=== PATIENT | female | born 1970 | race Caucasian/White ===

== ENCOUNTER 2016-07-22 20:21 | Emergency (ER) | payer OTHER ==
[~2016-07-22] VITALS: Ht 165.1 cm; Wt 71.7 kg
[2016-07-22 20:25] VITALS: TEMP 36.6; Ht 165.1 cm; Wt 71.7 kg
[2016-07-22 20:40] VITALS: O2SAT 99
[2016-07-22 21:12] LABS: HEMATOCRIT 33.6 % (37-47); MEAN CELL VOLUME 82.2 fL (80-100); MEAN CORPUSCULAR HEMOGLOBIN 28.6 pg (25-34); MEAN CORPUSCULAR HGB CONC 34.8 g/dl (32-36); MEAN PLATELET VOLUME 9.2 fL (7.4-10.4); PLATELET COUNT 257 K/uL (130-400); RED BLOOD COUNT 4.09 M/uL (4.2-5.4); WHITE BLOOD COUNT 4.17 K/uL (4.8-10.8)
--- NOTE | 2016-07-22 21:17 | DIAGNOSTIC IMAGING REPORT ---
CHEST ONE VIEW PORTABLE CLINICAL HISTORY: chest pain dyspnea COMPARISON STUDY: No previous studies for comparison. FINDINGS: The bones soft tissues and hemidiaphragms are normal. The cardiomediastinal silhouette is normal. The lungs are clear. The pulmonary vasculature is normal. IMPRESSION: Negative chest. Electronically signed by: Davey Cat M.D. 07/22/2016 9:15 PM
[2016-07-22 21:19] LABS: BUN/CREATININE RATIO 31.3 (10-20); CALCIUM 8.5 mg/dl (8.5-10.1); CREATININE 0.75 mg/dl (0.60-1.20); POTASSIUM 3.6 mmol/L (3.5-5.1)
[2016-07-22] MEDS ORDERED: KETOROLAC TROMETHAMINE 30 MG/ML VIAL IV STA (21:20)
[2016-07-22 21:24] LABS: ALB/GLOB RATIO 1.3 (0.9-2); CKMB/CK RATIO 0.9 (0-3.0)
[2016-07-22 21:26] LABS: PROTHROMBIN TIME (PATIENT) 10.3 SECONDS (9.0-12.0)
--- NOTE | 2016-07-22 21:38 | EMERGENCY ROOM VISIT NOTE ---
History Report prepared by Kana: [place] Under the Supervision of: Dr. Yeison Lopez M.D. First contact with patient: 21:15 Chief Complaint: CHEST PAIN Stated Complaint: CHEST PAINS, SOB History of Present Illness The patient is a 45 year old female who presents to the Emergency Room with complaints of severe left sided chest pain radiating towards her left shoulder starting about 2 hours ago. She was having dinner with her family when she had a sudden onset of her pain. She describes it to be a pressure-like pain which intermittently becomes sharp. She has worsening pain with breathing and turning her body to the left. The patient denies recent travels, dizziness, lightheadedness, headaches, nausea, vomiting, pain/swelling in lower extremities , or any other complaints. She denies any chance of . The patient does not have any medical problems. She has had no rash or nausea or hives. no difficulty speaking or swallowing Source of History: patient, spouse/significant other Onset: about 2 hours ago Position: chest (left) Symptom Intensity: severe Quality: pressure, sharp Modifying Factors (Worsening): breathing, other (turning her body to the left) Associated Symptoms: No headache, No nausea, No vomiting Review of Systems See HPI for pertinent positives & negatives. A total of 10 systems reviewed and were otherwise negative. Past Medical & Surgical Medical Problems: (1) No Known Active Medical Problems Old medical records were reviewed. Nurse's notes were reviewed and I agree with. Family History Patient reports no known family medical history. Social History Smoking Status: Never Smoker Drug Use: none Marital Status: Occupation Status: unemployed Current/Historical Medications Scheduled Acetaminophen (Tylenol), 1,000 MG PO PRN UD Allergies Coded Allergies: Povidone Iodine (Verified Allergy, Severe, RASH, 07/22/16) Physical Exam Vital Signs Date Time Temp Pulse Resp B/P Pulse Ox O2 Delivery O2 Flow Rate FiO2 07/23/16 00:03 69 19 95 07/22/16 23:58 95/64 07/22/16 23:33 73 18 96 07/22/16 23:28 103/66 07/22/16 23:03 75 29 97 07/22/16 22:58 101/64 07/22/16 22:51 77 16 96 07/22/16 22:28 99/68 07/22/16 22:21 71 26 98 07/22/16 21:58 106/66 07/22/16 21:51 75 23 98 07/22/16 21:28 105/69 07/22/16 21:21 75 21 100 07/22/16 21:05 Room Air 07/22/16 20:58 105/69 07/22/16 20:51 81 25 96 07/22/16 20:49 74 07/22/16 20:40 99 Room Air 07/22/16 20:39 107/72 07/22/16 20:25 36.6 80 18 134/87 98 Room Air Physical Exam General: Mildly uncomfortable appearing, young female, in no acute distress. HEENT: Normal cephalic atraumatic. Pupils are equal round and reactive to light. Sclerae anicteric. Extraocular movements are intact. Oropharynx is pink with moist mucous membranes. No swelling of the mouth lips or tongue. Neck: Supple with a midline trachea. No meningeal signs or stiffness, no JVD or bruits. No Stridor. Chest: Clear to auscultation bilaterally. No wheezes or rhonchi. No increased work of breathing. Reproducible tenderness to palpation. Heart: regular rate and rhythm. Abdomen: Soft nontender, nondistended without rebound guarding or rigidity. Extremities: No cyanosis clubbing or edema. No calf tenderness or assymetry Spine/Back. Non tender to palpation. No CVA tenderness Skin: Good turgor without rashes. Neurologic exam: Cranial nerves two through 12 are intact. Motor and sensation are intact and symmetrical throughout. Medical Decision & Procedures ER Provider Diagnostic Interpretation: X-ray results as stated below per interpretation by me and the radiologist: CHEST ONE VIEW PORTABLE CLINICAL HISTORY: chest pain dyspnea COMPARISON STUDY: No previous studies for comparison. FINDINGS: The bones soft tissues and hemidiaphragms are normal. The cardiomediastinal silhouette is normal. The lungs are clear. The pulmonary vasculature is normal. IMPRESSION: Negative chest. Electronically signed by: Davey Cat M.D. 07/22/2016 9:15 PM Laboratory Results 07/22/16 20:35 07/22/16 20:35 Test 07/22/16 20:35 Red Blood Count 4.09 M/uL (4.2-5.4) Mean Corpuscular Volume 82.2 fL (80-100) Mean Corpuscular Hemoglobin 28.6 pg (25-34) Mean Corpuscular Hemoglobin Concent 34.8 g/dl (32-36) RDW Standard Deviation 36.8 fL (36.4-46.3) RDW Coefficient of Variation 12.3 % (11.5-14.5) Mean Platelet Volume 9.2 fL (7.4-10.4) Prothrombin Time 10.3 SECONDS (9.0-12.0) Prothromb Time International Ratio 1.0 (0.9-1.1) Activated Partial Thromboplast Time 25.3 SECONDS (21.0-31.0) Partial Thromboplastin Ratio 1.0 D-Dimer 240 ug/L FEU (0-500) Anion Gap 11.0 mmol/L (3-11) Est Creatinine Clear Calc Drug Dose 96.0 ml/min Estimated GFR () 113.1 Estimated GFR (Non- 97.6 BUN/Creatinine Ratio 31.3 (10-20) Calcium Level 8.5 mg/dl (8.5-10.1) Total Bilirubin 0.2 mg/dl (0.2-1) Aspartate Amino Transf (AST/SGOT) 39 U/L (15-37) Alanine Aminotransferase (ALT/SGPT) 63 U/L (12-78) Alkaline Phosphatase 68 U/L (45-117) Total Creatine Kinase 80 U/L (26-192) Creatine Kinase MB 0.7 ng/ml (0.5-3.6) Creatine Kinase MB Ratio 0.9 (0-3.0) Troponin I < 0.015 ng/ml (0-0.045) Total Protein 7.0 gm/dl (6.4-8.2) Albumin 4.0 gm/dl (3.4-5.0) Globulin 3.0 gm/dl (2.5-4.0) Albumin/Globulin Ratio 1.3 (0.9-2) Laboratory studies as stated above per my review. Medications Administered Medications (Trade) Dose Ordered Sig/Sofi Route Start Time Stop Time Status Last Admin Dose Admin Ketorolac Tromethamine (Toradol Inj) 30 mg NOW STAT IV 07/22/16 21:20 07/22/16 21:21 DC 07/22/16 22:00 30 MG Ondansetron HCl (Zofran Inj) 4 mg NOW STAT IV 1/4/17 23:01 07/22/16 23:02 DC 07/22/16 23:05 4 MG Morphine Sulfate (MoRPHine SULFATE INJ) 4 mg NOW STAT IV 07/22/16 23:01 07/22/16 23:02 DC 07/22/16 23:05 4 MG Oxycodone HCl (Roxicodone Immediate Rel 5MG Home Pack) 1 homepack UD ONCE PO 07/23/16 00:15 07/23/16 00:17 DC 07/23/16 00:15 1 HOMEPACK ECG Indication: chest pain Rate (beats per minute): 70 Rhythm: normal sinus Findings: no acute ischemic change, no ectopy Comparison ECG Date: no prior available ED Course 2114: Past medical records reviewed. The patient was evaluated in room C10, and a complete history and physical examination were performed. 2119: Toradol 30 mg IV 2300: I reevaluated the patient who continues to complain of his pain and is requesting more pain medication. 2300: Morphine Sulfate 4 mg IV, Zofran Inj 4 mg IV 0000: Upon reevaluation, the patient is feeling better. I discussed the results and treatment plan with her. She verbalized agreement of the treatment plan. The patient was discharged home. 0015: Oxycodone HCl 1 homepack PO Medical Decision Differential diagnosis includes but is not limited to costochondritis, acute coronary syndrome, arrhythmia, pulmonary embolism, electrolyte or metabolic abnormality. This patient comes in as described above. She was placed in room C10. She is having pain along the left sternal border is extremely reproducible upon palpation breathing or movement. She's had no trauma. She has a history of having allergies but has no evidence of having acute anaphylaxis at present. She has no rash or shortness of breath, facial swelling or GI symptoms. IV access established and she was given Toradol 30 mg IV. EKG and multiple blood testing was obtained. Her EKG does not suggest acute coronary syndrome or arrhythmia. Her troponin is not elevated. Her chest x-ray was clear and has no pneumonia or pneumothorax. Her d-dimer is within normal limits and in a low pretest probably setting makes PE highly unlikely. She is not . She did require morphine 4 mg IV and Zofran 4 mg IV is feeling much better up to going home. I think this most likely is costochondritis. I will discharge her home. She should use ibuprofen for pain. For breakthrough pain, she can use OxyIR 5 mg, one or 2 pills every 4-6 hours as needed. She was warned that this could make her drowsy and do not take before drinking, driving, working. She should follow-up with her regular doctor in 1-2 days for recheck. The patient and her were happy with plan and she was discharged to home. Impression Primary Impression: Left sided chest pain Additional Impression: Costochondritis Scribe Attestation The scribe's documentation has been prepared under my direction and personally reviewed by me in its entirety. I confirm that the note above accurately reflects all work, treatment, procedures, and medical decision making performed by me. Departure Information Dispostion Home / Self-Care Referrals Nadeem Marmolejo M.D. (PCP) Forms HOME CARE DOCUMENTATION FORM, IMPORTANT VISIT INFORMATION Patient Instructions A Signature Page, My [facility] Additional Instructions Rest. Drink plenty of fluids. Use ibuprofen or acetaminophen if needed for pain. Do not exceed the [id number] recommended dosages for acetaminophen For more severe pain, use OxyIR 5 mg, one or 2 pills every 4-6 hours as needed OxyIR may make you drowsy and do not take before drinking, driving, working Return if: Worsening of symptoms, shortness of breath, fever or chills, any new problems or concerns.
[2016-07-22] MEDS ORDERED: ACET-1256 PO (22:37)
[2016-07-22] MEDS ORDERED: ONDANSETRON INJ 2 MG/ML 2 ML VIAL IV STA (23:01)
[2016-07-22] MEDS ORDERED: MoRPHine SULFATE 4 MG/ML 1 ML CARP\\VIAL IV STA (23:01)
[2016-07-22 23:58] VITALS: BP 95/64
[2016-07-23 00:03] VITALS: PULSE 69; O2SAT 95
[2016-07-23] MEDS ORDERED: OXYCODONE IR HOME PACK PO ONE (00:15)
[2016-12-17] MEDS ORDERED: MULT-506 PO (13:32)
[2016-12-17] MEDS ORDERED: CETI10TA84 PO (13:32)
== END 2016-07-23 00:26 | disposition home or self-care (01) ==
LOC: C.EDB 20:22 → C.EDC 07-23 00:26
DX: R07.9 Chest pain, unspecified (principal); M94.0 Chondrocostal junction syndrome [Tietze]; Z88.8 Allergy status to other drugs, medicaments and biological substances

== ENCOUNTER 2016-08-15 11:47 | Emergency (ER) | payer OTHER ==
[~2016-08-15] VITALS: Ht 162.6 cm; Wt 71.7 kg
[~2016-08-15 11:47] MED LIST: ACET-1256 PO
[2016-08-15 11:51] VITALS: TEMP 36.8; Ht 162.6 cm; Wt 71.7 kg
[2016-08-15] MEDS ORDERED: METHYLPREDNISOLONE 125 MG VIAL IV STA (12:56)
[2016-08-15] MEDS ORDERED: FAMOTIDINE IV INJ 20 MG in DEXTROSE 5% 100ML 100 ML IV SCH (13:00)
[2016-08-15] MEDS ORDERED: PRED50TA PO (14:03)
[2016-08-15 14:39] VITALS: BP 108/73; PULSE 74; O2SAT 99
--- NOTE | 2016-08-15 15:12 | EMERGENCY ROOM VISIT NOTE ---
History Report prepared by Kana: [place] Under the Supervision of: Dr. Ba Flores D.O. First contact with patient: 12:19 Chief Complaint: ALLERGIC REACTION Stated Complaint: RASH, BLISTER, THROAT ITCHY AND NAUSEA Nursing Triage Summary: Triage note: pt presents with three children and reports "i'm sorry my is out of town." pt reports since yesteray she has had rash that is spreading and today she is having throat pain and difficulty swallowing. pt reports taking beneddryl 2 tablets at 0830. pt reports she has hx of anaphalatic reactions and has an epi pen but she did not use it today. blood pressure not obtained in triage due to pt complaint of it being too tight and cuff removed per pt request. jasbir nurse to care for pt aware. History of Present Illness The patient is a 45 year old female who presents to the Emergency Room with complaints of an intermittent rash for the past month. The patient has noticed the rash every day. They are completely random and she is not sure what causes them. The rash today started on her left upper extremity. The patient had two Benadryl last night, which helped a little. The patient started to experience throat tightness and itchiness today, which makes it a little difficult to swallow. The patient had an allergic reaction to a bee sting last year. She followed up with an network firewall engineer at that time. The patient has not seen an network firewall engineer for the rash she has been experiencing. The patient denies starting any new medications or using any new soaps / detergents. She has not eaten or drank anything unusual. Patient denies headache, change in vision, fevers, chest pain, shortness of breath, nausea, vomiting, diarrhea, pain with urination , and melena. Source of History: patient Onset: one month Position: other (skin) Quality: other (rash) Timing: intermittent Associated Symptoms: No SOB, No chest pain, No diarrhea, No fevers, No headache, No melena, No nausea, No urinary symptoms, No vomiting Review of Systems See HPI for pertinent positives & negatives. A total of 10 systems reviewed and were otherwise negative. Past Medical & Surgical Medical Problems: (1) No Known Active Medical Problems Family History Patient reports no known family medical history. Social History Smoking Status: Never Smoker Drug Use: none Marital Status: Occupation Status: unemployed Current/Historical Medications Scheduled Acetaminophen (Tylenol), 1,000 MG PO PRN UD Prednisone (Prednisone), 50 MG PO DAILY Allergies Coded Allergies: Povidone Iodine (Verified Allergy, Severe, RASH, 08/15/16) Physical Exam Vital Signs Date Time Temp Pulse Resp B/P Pulse Ox O2 Delivery O2 Flow Rate FiO2 08/15/16 14:39 74 18 108/73 99 08/15/16 12:14 92 08/15/16 12:10 85 18 129/75 99 Room Air 08/15/16 11:51 36.8 95 20 97 Room Air Physical Exam GENERAL: Sitting up in bed, no acute distress, nontoxic. EYE EXAM: normal conjunctiva. OROPHARYNX: no exudate, no erythema, lips, buccal mucosa, and tongue normal and mucous membranes are moist NECK: supple, no nuchal rigidity, no adenopathy, non-tender, stridor. LUNGS: Clear to auscultation. Normal chest wall mechanics HEART: no murmurs, S1 normal and S2 normal ABDOMEN: abdomen soft, non-tender, normo-active bowel sounds, no masses, no rebound or guarding. BACK: Back is symmetrical on inspection and there is no deformity, no midline tenderness, no CVA tenderness. SKIN: Small areas of erythema on bilateral wrists which are blanching and raised. No petechiae. UPPER EXTREMITIES: upper extremities are grossly normal. LOWER EXTREMITIES: No pitting edema. NEURO EXAM: Normal sensorium, cranial nerves II-XII grossly intact, normal speech, no gross weakness of arms, no gross weakness of legs. Gross sensation intact. Medical Decision & Procedures Medications Administered Medications (Trade) Dose Ordered Sig/Sofi Route Start Time Stop Time Status Last Admin Dose Admin Methylprednisolone Sodium Succinate 125 mg 125 mg NOW STAT IV 08/15/16 12:56 08/15/16 12:58 DC 08/15/16 13:27 125 MG Famotidine/ Dextrose (Pepcid IV Inj/ D5 100ml) 102 ml @ 200 mls/hr NOW IV 08/15/16 13:00 08/15/16 14:52 DC 08/15/16 13:41 200 MLS/HR ED Course ED COURSE: Vital signs were reviewed and were normal The patients medical record was reviewed The above diagnostic studies were performed and reviewed. ED treatments and interventions as stated above. 1225: The patient was evaluated in room B3b. A complete history and physical examination was performed. 1256: Solu-Medrol 125 mg IV. 1300: Famotidine 20 mg / dextrose 102 ml @ 200 mls/hr. 1350: The patient feels significantly better and her symptoms have completely resolved. 1400: Upon reevaluation, the patient is improving.I discussed my findings with the patient and she understands and agrees with the treatment plan. Based on the patients age, coexisting illnesses, exam and lab findings the decision to treat as an outpatient was made. The patient remained stable while under my care. The patient appeared well at the time of discharge. Medical Decision Etiologies such as allergic reaction, anaphylaxis, urticaria, Velazquez-Jose Rafael syndrome, toxic epidermal necrolysis, erythema multiforme, cellulitis, as well as others were entertained. Patient is a 45-year-old female who presents the ER for allergic reaction. She notes that she has been getting intermittent hives for the past month off and on. She normally takes Benadryl and Zyrtec [id number]. Patient has had no change in her medications, surroundings including detergents, soaps, clothing , pets, or recent travel. Patient notes that these reasons become very itchy and today she had some itchiness of her throat. She took some Benadryl who presents to the ER. She notes that her symptoms are improving upon presentation. She is in no respirator distress. She was given IV steroids and famotidine since she was driving. Symptoms resolved. She was discharged to follow-up with her primary care doctor and an network firewall engineer. She has followed up with an network firewall engineer before the past. She is no other complaints at this time. Discussed with Pt concerning signs and symptoms to watch out for. Pt was instructed to follow up with their PCP and discussed with the patient their option to return to the ED at anytime for persistent or worsening symptoms. The appropriate anticipatory guidance and out-patient management, including indications for return to the emergency department, were explained at length to the patient and understood. Impression Primary Impression: Allergic reaction Scribe Attestation The scribe's documentation has been prepared under my direction and personally reviewed by me in its entirety. I confirm that the note above accurately reflects all work, treatment, procedures, and medical decision making performed by me. Departure Information Dispostion Home / Self-Care Prescriptions Prednisone (PREDNISONE) 50 Mg Tab 50 MG PO DAILY for 2 Days, #2 TAB Prov: Ba Flores, DO 08/15/16 Referrals No Doctor, Assigned (PCP) Forms HOME CARE DOCUMENTATION FORM, IMPORTANT VISIT INFORMATION Patient Instructions ED Allergic Reaction General Other, My [facility] Additional Instructions Please follow up with your primary care doctor with in the next 24 hours. Any worsening of your symptoms, please return to the ED immediately. This includes sodium her throat, trouble breathing, worsening rash, development of your mouth or eyes, or any other concerning signs or symptoms from your standpoint. If this recurs please take Benadryl 50 mg 3 times a day as needed for itching or swelling. Please continue to take [id number] Zyrtec daily. Problem Qualifiers Primary Impression: Allergic reaction Encounter type: initial encounter Qualified Codes: T78.40XA - Allergy, unspecified, initial encounter
[2016-12-17] MEDS ORDERED: MULT-506 PO (13:32)
[2016-12-17] MEDS ORDERED: CETI10TA84 PO (13:32)
== END 2016-08-15 14:40 | disposition home or self-care (01) ==
LOC: C.EDB 11:49
DX: T78.40XA Allergy, unspecified, initial encounter (principal)

== ENCOUNTER → 2016-08-31 | Outpatient (CLI) | payer OTHER ==
[~2016-08-31] MED LIST changes: +CETI10TA84 PO; +MULT-506 PO
--- NOTE | 2016-08-31 11:22 | DIAGNOSTIC IMAGING REPORT ---
PELVIC ULTRASOUND, TRANSABDOMINAL AND TRANSVAGINAL HISTORY: EXCESSIVE/FREQUENT MENSTRUATION COMPARISON: None. FINDINGS: Uterus: 9.3 x 4.0 x 4.7 cm. No uterine masses. Endometrial stripe: 1.1 cm in thickness. Right ovary: Normal in size and demonstrates normal color flow. Slightly complex 1.5 cm cyst. Left ovary: Normal in size and demonstrates normal color flow. Slightly complex 1.3 cm cyst. There is also 2.4 cm simple cyst. Miscellaneous:Trace pelvic free fluid. This is likely physiologic. IMPRESSION: Bilateral ovarian cysts as described above. Normal uterus. Electronically signed by: Henry Obrien M.D. 08/31/2016 11:20 AM Dictated Date/Time: 08/31/2016 11:18 AM
== END | disposition home or self-care (01) ==
LOC: C.ULTRBC 10:20
PROVIDERS: ATTEND Nurse Practitioner Family
DX: N92.0 Excessive and frequent menstruation with regular cycle (principal); N83.201 Unspecified ovarian cyst, right side; N83.202 Unspecified ovarian cyst, left side

== ENCOUNTER → 2016-09-10 | Outpatient (CLI) | payer OTHER | END | disposition home or self-care (01) | LOC: C.LAB1850 11:38 | PROVIDERS: ATTEND Obstetrics & Gynecology | DX: N83.209 Unspecified ovarian cyst, unspecified side (principal) ==

== ENCOUNTER → 2016-09-10 | Outpatient (CLI) | payer OTHER | END | disposition home or self-care (01) | LOC: C.PATHSPEC 14:00 | PROVIDERS: ATTEND Obstetrics & Gynecology | DX: N92.0 Excessive and frequent menstruation with regular cycle (principal) ==

== ENCOUNTER → 2016-09-15 | Outpatient (CLI) | payer OTHER ==
--- NOTE | 2016-09-16 12:36 | MAMMOGRAPHY REPORT ---
BILATERAL DIGITAL SCREENING MAMMOGRAM TOMOSYNTHESIS WITH CAD: 09/15/2016 CLINICAL HISTORY: Routine screening examination. TECHNIQUE: Breast tomosynthesis in addition to standard 2D mammography was performed. Current study was also evaluated with a Computer Aided Detection (CAD) system. COMPARISON: Comparison is made to exam dated: 09/13/2015 mammogram - [facility], 0 03/22/2014, [facility]. BREAST COMPOSITION: There are scattered areas of fibroglandular density in both breasts. FINDINGS: There is stable asymmetry in the subareolar right breast dating back to at least 4, therefore likely benign with greater than 2 years of stability. There are stable microcalcificat ions in the right greater than left subareolar breast. No new suspicious mass, architectural distor tion or cluster of microcalcifications is seen. IMPRESSION: ACR BI-RADS CATEGORY 1: NEGATIVE There is no mammographic evidence of malignancy. A 1 year screening mammogram is recommended. The p atient will receive written notification of the results. Approximately 10% of breast cancers are not detected with mammography. A negative mammographic repor t should not delay biopsy if a clinically suggestive mass is present. Jud Eden M.D. ay/:09/15/2016 17:53:10 Furniture Salesperson: Vero TORRES)([place]), [facility] letter sent: Normal 1/2 BI-RADS Code: ACR BI-RADS Category 1: Negative
== END | disposition home or self-care (01) ==
LOC: C.MAMM 09:36
PROVIDERS: ATTEND Family Medicine
DX: Z12.31 Encounter for screening mammogram for malignant neoplasm of breast (principal)

== ENCOUNTER → 2016-10-08 | Outpatient (CLI) | payer OTHER ==
--- NOTE | 2016-10-08 10:37 | DIAGNOSTIC IMAGING REPORT ---
L-SPINE MIN 4 VIEWS ROUTINE CLINICAL HISTORY: Low back pain COMPARISON STUDY: No previous studies for comparison. FINDINGS: There are degenerative changes present the L5-S1 level. No fractures or subluxations are visualized. No destructive lesions are evident. IMPRESSION: 1. No fractures or subluxations identified 2. Degenerative changes most pronounced at the L5-S1 level. Electronically signed by: Trey Booker M.D. 10/08/2016 10:36 AM Dictated Date/Time: 10/08/2016 10:35 AM
== END | disposition home or self-care (01) ==
LOC: C.RAD1850 10:15
PROVIDERS: ATTEND Family Medicine
DX: M54.5 Low back pain (principal)

== ENCOUNTER → 2017-01-07 | Day surgery (SDC) | payer OTHER ==
[2016-12-17 13:32] VITALS: Ht 162.6 cm; Wt 70.9 kg
[~2017-01-07] VITALS: Ht 162.6 cm; Wt 70.9 kg
[~2017-01-07] MED LIST changes: +BUPIVACAINE 0.25% 2.5MG/ML PF 10 ML VIAL ONE; +EPP3/2 IM; +IOPAMIDOL INJ 61% 15 ML VIAL ONE; +LIDOCAINE HCL 1% MPF 5 ML VIAL ONE
--- NOTE | 2017-01-07 12:50 | History & Physical Bridge - SC ---
H&P Re-Evaluation Bridge Note: I have examined the patient, reviewed the History & Physical and in the interval since the performance of the History & Physical I have noted the following changes of clinical significance: No changes noted
[2017-01-07 13:12] VITALS: BP 109/74; PULSE 50; TEMP 36.6; O2SAT 98
--- NOTE | 2017-01-07 13:19 | Discharge Instructions ---
Discharge Instructions Date of Service Jan 07, 2017. Visit Reason for Visit: Sacroiliitis Discharge Discharge Diagnosis / Problem: low back pain Discharge Goals Goal(s): Decrease discomfort, Improve function Activity Recommendations Activity Limitations: resume your previous activity Anesthesia . Post Anesthesia Instructions: If you have had General Anesthesia or IV Sedation: * Do not drive today. * Resume driving when surgeon permits. * Do not make important decisions or sign legal documents today. * Call surgeon for: 1. Temperature elevations greater than 101 degrees F. 2. Uncontrollable pain. 3. Excessive bleeding. 4. Persistent nausea and vomiting. 5. Medication intolerance (nausea, vomiting or rash). * For nausea and vomiting use only clear liquids such as: tea, soda, bouillon until nausea subsides, then gradually increase diet as tolerated. * If you have any concerns or questions, call your surgeon's office. If physician is unavailable and it is an emergency, call 911 or go to the nearest emergency room. . Diet Recommendations Recommended Home Diet: resume previous diet Procedures Procedures Performed: Left Sacroiliac joint injection Pending Studies Studies pending at discharge: no Medical Emergencies . Who to Call and When: Medical Emergencies: If at any time you feel your situation is an emergency, please call 911 immediately. . Non-Emergent Contact Non-Emergency issues call your: Specialist . . "Provider Documentation" section prepared by Fernando Yung. .
--- NOTE | 2017-01-07 13:38 | OPERATIVE REPORT ---
DATE OF OPERATION: 01/07/2017 PREOPERATIVE DIAGNOSIS: Left sacroiliitis. POSTOPERATIVE DIAGNOSIS: Same. PROCEDURE: Left sacroiliac joint injection under fluoroscopic guidance. SURGEON: Dr. Fernando Yung. INDICATIONS: The patient is a 46-year-old white female who presents today with a 7-month history of low back pain. She localizes it to the SI joint. This was caused by carrying a load of heavy books and twisting and turning. It has not improved despite conservative treatment. She presents today for an SI joint injection to provide her with relief. PHYSICAL EXAMINATION: Pleasant female seated comfortably in no apparent distress. She has point tenderness to palpation over the left SI joint. Other areas are nontender. She has normal motor and sensory examination of her lower extremities and positive sacral compression maneuver and a positive Analilia maneuver on the left. CONSENT: Verbal and written consent was obtained from the patient. Risks and benefits were reviewed. Risks include but are not limited to abscess and allergic reaction and she wishes to proceed. PROCEDURE: The patient was taken back to the special procedures room of [facility]. She was maintained in a prone position. Backside was cleansed with chlorhexidine x3 as she has an allergy to iodine, a dry sterile dressing was then placed. Fluoroscope was used to identify the left SI joint and the overlying skin was anesthetized with 2.5 mL of lidocaine 1% with a 25 gauge 1.5-inch needle. A 25 gauge 3.5 inch spinal needle was then directed under fluoroscopic guidance into the SI joint. Placement was confirmed by the fluoroscope picture. Isovue was deferred given her allergy to contrast. She then underwent injection after negative aspiration of 40 mg of Depo-Medrol and 2 mL of preservative free bupivacaine 0.25%. Injection was well tolerated. DISPOSITION: The patient is taken out into the discharge recovery area where she will be discharged home once discharge criteria have been met and follow up in the office in 4 weeks' time. I attest to the content of the Intraoperative Record and any orders documented therein. Any exception s are noted below.
== END | disposition home or self-care (01) ==
LOC: X.SURG 12:15
PROVIDERS: ATTEND Physical Medicine & Rehabilitation
DX: M46.1 Sacroiliitis, not elsewhere classified (principal); Z91.013 Allergy to seafood; Z80.3 Family history of malignant neoplasm of breast; Z83.3 Family history of diabetes mellitus; Z82.49 Family history of ischemic heart disease and other diseases of the circulatory system

== ENCOUNTER 2017-04-25 15:11 | Emergency (ER) | payer OTHER ==
[~2017-04-25] VITALS: Ht 162.6 cm; Wt 70.7 kg
[2017-04-25 15:11] VITALS: TEMP 37; O2SAT 97; Ht 162.6 cm; Wt 70.7 kg
[~2017-04-25 15:11] MED LIST changes: -BUPIVACAINE 0.25% 2.5MG/ML PF 10 ML VIAL ONE; -EPP3/2 IM; -IOPAMIDOL INJ 61% 15 ML VIAL ONE; -LIDOCAINE HCL 1% MPF 5 ML VIAL ONE
[2017-04-25] MEDS ORDERED: FAMOTIDINE 20MG/102 ML D5W IV STA (15:13)
[2017-04-25] MEDS ORDERED: DiphenhydrAMINE HCL 50 MG/ML VIAL IV STA (15:13)
[2017-04-25] MEDS ORDERED: METHYLPREDNISOLONE 125 MG VIAL IV STA (15:13)
[2017-04-25] MEDS ORDERED: EPP3/2 IM ×2 (15:57→17:40)
[2017-04-25 17:48] VITALS: BP 115/76; PULSE 73; O2SAT 98
--- NOTE | 2017-04-25 21:37 | EMERGENCY ROOM VISIT NOTE ---
History Report prepared by Kana: Julian Carcamo Under the Supervision of: Dr. Ba Flores D.O. First contact with patient: 15:13 Chief Complaint: ALLERGIC REACTION Stated Complaint: ALLERGIC REACTION Nursing Triage Summary: Pt to helpdesk administrator in lobby to check in. Friend states to this county assessor, "she can't breathe! she can't breathe!". Pt was taken to room A01 via wheelchair. Ifrah Garcia RN was made aware. Doctor was paged to room. Silvano EDT to room for IV and bloodwork. Pt placed on monitor and pulse ox; 93, SR and 97% RA. Pt reports she was stung by either a yellow jacket or a hornet to left FA. Pt took 2 Benadry and used her epi pen. States her throat is scraty and she feels jittery. pt has allergy to bees and is getting "bee shots" at [facility] RN asked to take over care of pt for meds History of Present Illness The patient is a 46 year old female who presents to the Emergency Room with complaints of a constant allergic reaction that started 10 minutes ago. The patient states that she was at her [employer] game when she was stung by a bee. She states that she felt a sting and then a pruritic sensation. The patient admits that she took 2 Benadryl, but denies any relief of symptoms. The patient is accompanied by her sister who states that the patient started to have an allergic reaction 10 minutes ago. She reports that the patient used an Epipen 3 or 4 minutes ago, but denies any relief of symptoms. The patient admits that she has had this happen to her twice in the past. She reports that she is currently shaky and tachycardia. The patient admits she is going to have a "bee shot" done at [facility]. The patient denies any trouble swallowing, SOB, or any other medical problems. 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 A total of 10 systems reviewed and were otherwise negative. Past Medical & Surgical Medical Problems: (1) Bee sting allergy Family History Patient reports no known family medical history. Social History Smoking Status: Never Smoker Drug Use: none Marital Status: Occupation Status: unemployed Current/Historical Medications Scheduled Acetaminophen (Tylenol), 1,000 MG PO PRN UD Cetirizine (Zyrtec), 10 MG PO DAILY Epinephrine (Epipen), 0.3 MG IM UD Multivitamin (Multivitamin), 1 TAB PO QAM Scheduled PRN Epinephrine (Epipen 2-Que), 0.3 MG IM once PRN for anaphylaxis Allergies Coded Allergies: Povidone Iodine (Verified Allergy, Severe, RASH, 04/25/17) Hornet Venom (Unverified Allergy, Intermediate, TROUBLE BREATHING, 04/25/17 ) Paper Wasp (Unverified Allergy, Intermediate, TROUBLE BREATHING, 04/25/17) Wasp Venom Protein (Unverified Allergy, Intermediate, TROUBLE BREATHING, 04/25/17) White-Faced Hornet (Unverified Allergy, Intermediate, TROUBLE BREATHING, 04/25/17) Yellow Hornet (Unverified Allergy, Intermediate, TROUBLE BREATHING, ) Iodinated Diagnostic Agents (Verified Allergy, Mild, TROUBLE BREATHING, ) NO KNOWN DRUG ALLERGIES (Verified Allergy, Mild, ., 04/25/17) Shellfish (Verified Allergy, Mild, TROUBLE BREATHING, 04/25/17) Wasp (Unverified Allergy, Unknown, TROUBLE BREATHING, 04/25/17) Physical Exam Vital Signs Date Time Temp Pulse Resp B/P (MAP) Pulse Ox O2 Delivery O2 Flow Rate FiO2 04/25/17 17:48 73 18 115/76 98 04/25/17 16:12 76 121/73 98 Room Air 04/25/17 15:28 80 111/81 99 Room Air 04/25/17 15:17 86 04/25/17 15:11 97 Room Air 04/25/17 15:11 37.0 93 26 154/99 97 Room Air 04/25/17 15:11 97 Room Air Physical Exam GENERAL: sitting up in bed, taking shallow breaths, able to talk in full sentences, able to tolerate water. EYE EXAM: normal conjunctiva, PERRL and EOM's grossly intact OROPHARYNX: no exudate, no erythema, lips, buccal mucosa, and tongue normal and mucous membranes are moist NECK: supple, no nuchal rigidity, no adenopathy, non-tender. No stridor. LUNGS: Clear to auscultation. Normal chest wall mechanics HEART: no murmurs, S1 normal and S2 normal ABDOMEN: abdomen soft, non-tender, normo-active bowel sounds, no masses, no rebound or guarding. SKIN: no rashes and no bruising UPPER EXTREMITIES: upper extremities are grossly normal. LOWER EXTREMITIES: No pitting edema. Erythema on left mid arm. NEURO EXAM: Normal sensorium, cranial nerves II-XII intact, normal speech, no weakness of arms, no gross weakness of legs. Gross sensation intact. Medical Decision & Procedures Medications Administered Medications (Trade) Dose Ordered Sig/Sofi Route Start Time Stop Time Status Last Admin Dose Admin Diphenhydramine HCl (Benadryl Inj) 25 mg NOW STAT IV 04/25/17 15:13 04/25/17 15:15 DC 04/25/17 15:19 25 MG Methylprednisolone Sodium Succinate (Solu-Medrol IV) 125 mg NOW STAT IV 04/25/17 15:13 04/25/17 15:15 DC 04/25/17 15:19 125 MG Famotidine (Pepcid 20mg/100 ml) 40 mg ONE STAT IV 04/25/17 15:13 04/25/17 15:15 DC 04/25/17 15:20 40 MG ED Course ED COURSE: Vital signs were reviewed and showed hypertension The patients medical record was reviewed The above diagnostic studies were performed and reviewed. ED treatments and interventions as stated above. 1506: The patient was evaluated in room A01. A complete history and physical examination was performed. 1513: Ordered Famotidine 40 mg IV, Solu-Medrol 125 mg IV, Benadryl Injection 25 mg IV. 1528: I reevaluated the patient and she reports she is feeling better. 1737: Upon reevaluation, the patient is feeling better and back to baseline. I discussed the findings and the treatment plan with the patient. She verbalizes agreement and understanding. The patient was discharged home. Medical Decision The differential diagnosis includes etiologies such as allergic reaction, anaphylaxis, urticaria, Velazquez-Jose Rafael syndrome, toxic epidermal necrolysis, erythema multiforme, cellulitis, as well as others were entertained. Patient is a 46-year-old female who presents to the ER following being stung by a bee for allergic reaction. Patient is complaining of a tickling in her throat. She is able to swallow and breathe without difficulty. Vitals show a mild tachycardia. She is able to talk in full sentences. Able to swallow without difficulty. No stridor. Patient was given fluids, famotidine and Benadryl along with steroids. Patient had complete resolution of symptoms. Patient was observed for 2 hours as she used her EpiPen. Complete resolution of her symptoms. She was discharged follow-up with PCP. Discussed with Pt concerning signs and symptoms to watch out for. Pt was instructed to follow up with their PCP and discussed with the patient their option to return to the ED at anytime for persistent or worsening symptoms. The appropriate anticipatory guidance and out-patient management, including indications for return to the emergency department, were explained at length to the patient and understood. Medication Reconcilliation Current Medication List: was personally reviewed by me Blood Pressure Screening Patient's blood pressure: Elevated blood pressure Blood pressure disposition: Elevated BP felt to be situational Impression Primary Impression: Allergic reaction Scribe Attestation The scribe's documentation has been prepared under my direction and personally reviewed by me in its entirety. I confirm that the note above accurately reflects all work, treatment, procedures, and medical decision making performed by me. Departure Information Dispostion Home / Self-Care Prescriptions Epinephrine (EPIPEN 2-QUE) 0.3 Mg Inj 0.3 MG IM once Y for anaphylaxis, #1 0 Refills Prov: Ba Flores, DO 04/25/17 Referrals Nadeem Marmolejo M.D. (PCP) Forms HOME CARE DOCUMENTATION FORM, IMPORTANT VISIT INFORMATION Patient Instructions ED Allergic Reaction General Other, My [facility] Additional Instructions Please follow up with your primary care doctor with in the next 24 hours. Any worsening of your symptoms, please return to the ED immediately. This includes any fevers greater than 100.4, trouble breathing, trouble swallowing, chest pain , shortness breath, persistent nausea, vomiting, unable to eat or drink, or any other concerning signs or symptoms from your standpoint. Problem Qualifiers Primary Impression: Allergic reaction Encounter type: sequela Qualified Codes: T78.40XS - Allergy, unspecified, sequela
== END 2017-04-25 17:50 | disposition home or self-care (01) ==
LOC: C.EDA 15:16 → C.EDC 17:50
DX: T63.441A Toxic effect of venom of bees, accidental (unintentional), initial encounter (principal)

== ENCOUNTER → 2017-05-17 | Outpatient (CLI) | payer OTHER ==
[~2017-05-17] MED LIST changes: +EPP3/2 IM
--- NOTE | 2017-05-17 17:39 | DIAGNOSTIC IMAGING REPORT ---
BONE SCAN 3 PHASE LIMITED CLINICAL HISTORY: LOW BACK PAIN pain TECHNIQUE: There is performed to multi phase fashion following administration of 27 mCi of technetium 99m MDP. Dynamic, immediate, as well as delayed images are acquired. COMPARISON STUDY: None FINDINGS: Normal vascular flow component. Immediate images show no blood flow anomaly. Delayed static images in multiple planes show normal bilateral renal activity. Activity characteristics of the low thoracic as well as lumbar spine are unremarkable. Moderate increase in activity of the sacroiliac joints can be an anatomic variation IMPRESSION: Negative study The above report was generated using voice recognition software. It may contain grammatical, syntax or spelling errors. Electronically signed by: Davey Cat M.D. 05/17/2017 5:38 PM Dictated Date/Time: 05/17/2017 5:35 PM
== END | disposition home or self-care (01) ==
LOC: C.NUCL 14:06
PROVIDERS: ATTEND Physical Medicine & Rehabilitation
DX: M54.5 Low back pain (principal)

== ENCOUNTER → 2017-09-17 | Outpatient (CLI) | payer OTHER ==
--- NOTE | 2017-09-17 13:36 | MAMMOGRAPHY REPORT ---
BILATERAL DIGITAL SCREENING MAMMOGRAM TOMOSYNTHESIS WITH CAD: 09/17/2017 CLINICAL HISTORY: Routine screening. Patient has no complaints. TECHNIQUE: Breast tomosynthesis in addition to standard 2D mammography was performed. Current study was also evaluated with a Computer Aided Detection (CAD) system. COMPARISON: Comparison is made to exams dated: 09/15/2016 mammogram and 09/13/2015 mammogram - [facility]. BREAST COMPOSITION: There are scattered areas of fibroglandular density in both breasts. FINDINGS: No suspicious masses, calcifications, or areas of architectural distortion are noted in ei ther breast. There has been no significant interval change compared to prior exams. Bilateral benign -appearing calcifications are not significantly changed. There is stable asymmetry in the right suba reolar breast. IMPRESSION: ACR BI-RADS CATEGORY 2: BENIGN There is no mammographic evidence of malignancy. A 1 year screening mammogram is recommended. The pa tient will receive written notification of the results. Approximately 10% of breast cancers are not detected with mammography. A negative mammographic report should not delay biopsy if a clinically suggestive mass is present. Enedelia Araya M.D. ah/:09/17/2017 12:40:03 [employer]: Maricruz Cobb RT(R)(M)(BD), [facility] letter sent: Normal 1/2 BI-RADS Code: ACR BI-RADS Category 2: Benign
== END | disposition home or self-care (01) ==
LOC: C.MAMM 09:09
PROVIDERS: ATTEND Family Medicine
DX: Z12.31 Encounter for screening mammogram for malignant neoplasm of breast (principal)

== ENCOUNTER → 2017-11-03 | Outpatient (CLI) | payer OTHER ==
[~2017-11-03] MED LIST changes: +GADAVIST IV PRN
--- NOTE | 2017-11-03 13:54 | DIAGNOSTIC IMAGING REPORT ---
MRI LUMBAR SPINE COMBINATION CLINICAL HISTORY: Low back pain with left leg radiculopathy TECHNIQUE: Sagittal and axial T1, T2 and STIR images were obtained. Images were acquired before and after the administration of 7 cc of intravenous Gadavist. COMPARISON STUDY: No previous studies for comparison. OBSERVATIONS: There are focal fatty rests/hemangiomas involving the L1 and L3 vertebral bodies. L1-2: No disc protrusions or extrusions. No evidence of spinal canal or neural foraminal compromise. L2-3: No disc protrusions or extrusions. No evidence of spinal canal or neural foraminal compromise. L3-4: There is a mild circumferential disc bulge. There is no significant spinal or foraminal stenosis L4-5: There is a minor circumferential disc bulge. There is no significant spinal or foraminal stenosis. There is facet joint arthropathy L5-S1: There is a grade 1 spondylolisthesis of L5 on S1. There is minor spinal canal narrowing. There is mild bilateral foraminal narrowing. The conus medullaris and cauda equina appear normal. Postcontrast images reveal no pathologically enhancing lesions. IMPRESSION: 1. Mild multilevel spondylitic changes. 2. Grade 1 spondylolisthesis of L5 on S1. Minor spinal canal narrowing, and mild bilateral foraminal narrowing at this level. Electronically signed by: Trey Booker M.D. 11/03/2017 1:53 PM Dictated Date/Time: 11/03/2017 1:49 PM
--- NOTE | 2017-11-03 13:56 | DIAGNOSTIC IMAGING REPORT ---
Study: MRI sacroiliac joints. HISTORY: Pain TECHNIQUE: Multiaxial MRI acquisition pre and postcontrast administration. FINDINGS: Signal characteristics the osseous structures are unremarkable. Sacroiliac joints appear symmetric. There is no evidence of bony ankylosis. There is no significant bone marrow replacing process. There are several very small bone cysts. The sacral foramina are symmetric. There is no evidence for abnormal postcontrast enhancement. There are small bilateral ovarian cysts measuring up to 1.5 cm on the left and 1.2 cm on the right. IMPRESSION: 1. Negative MRI of the sacral iliac joints. 2. Small bilateral ovarian cysts. Electronically signed by: Davey Cat M.D. 11/03/2017 1:55 PM Dictated Date/Time: 11/03/2017 1:46 PM
== END | disposition home or self-care (01) ==
LOC: C.MRI 12:30
PROVIDERS: ATTEND Nurse Practitioner Family
DX: M54.5 Low back pain (principal); M43.17 Spondylolisthesis, lumbosacral region; N83.201 Unspecified ovarian cyst, right side; N83.202 Unspecified ovarian cyst, left side